=== PATIENT | female | born 1960 | race Hispanic/Latino ===

== ENCOUNTER 2022-11-24 20:16 | Emergency (ER) | payer MEDICARE, OTHER ==
[~2022-11-24] VITALS: Ht 152.4 cm; Wt 72.0 kg
[2022-11-24 21:04] LABS: BASO% 0.7 % (0-3); EOS% 0.3 % (0-8); HEMATOCRIT 26.1 % (37.0-47.0); HEMOGLOBIN 7.9 g/dl (12.0-16.0); IMMATURE GRANULOCYTES 0.2 % (0.0-5.0); LYMPH% 24.7 % (15-41); MEAN CELL VOLUME 82.3 fL CALC (80.0-100.0); MEAN CORPUSCULAR HGB 24.9 pG CALC (26.0-32.0); MEAN CORPUSCULAR HGB CONC 30.3 g/dL CAL (32.0-36.0); NEUT# 7.84 thou/uL (2.00-7.15); NEUT% 67.1 % (42-76); RED BLOOD COUNT 3.17 mill/uL (4.20-5.60); RED CELL DISTRI WIDTH 14.6 % (11.5-15.5)
[2022-11-24 21:18] LABS: ALBUMIN 4.3 g/dL (3.2-5.0); ALKALINE PHOSPHATASE 92 u/l (38-126); ANION GAP 24 (6-22 (CALC)); BILIRUBIN, TOTAL 0.5 mg/dL (0.02-1.3); CARBON DIOXIDE 15 mmol/l (22-30); CHLORIDE 102 mmol/l (95-108); CPK 79 u/l (30-135); GFR FOR AFR.AMER. 4 ML/MIN (>=60 (CALC)); GFR OTHER RACES 3 ML/MIN (>=60 (CALC)); LIPASE 182 u/l (23-300); MAGNESIUM 2.9 mg/dL (1.6-2.3); POTASSIUM 4.9 mmol/l (3.5-5.1); SGOT/AST 20 u/l (9-36); SODIUM 136 mmol/l (137-146); TOTAL PROTEIN 8.8 g/dL (6.3-8.2)
[2022-11-24 21:19] LABS: BUN 109 mg/dL (8-23); BUN/CREATININE RATIO 9 (12-20 (CALC)); CREATININE 12.4 mg/dL (0.5-1.0)
[2022-11-24] MEDS ORDERED: TRADJENTA5 MG PO (21:24)
[2022-11-24] MEDS ORDERED: [UNRECOGNIZED DRUG - OTHER] (21:29)
[2022-11-24] MEDS ORDERED: BUMETANIDE1 MG PO (22:34)
[2022-11-24] MEDS ORDERED: ATORVASTATIN CA40 MG PO (22:35)
[2022-11-24] MEDS ORDERED: [UNRECOGNIZED DRUG - MIXTURE] (22:36)
[2022-11-24] MEDS ORDERED: CALCITRIOL0.25 MC1 PO (22:37)
[2022-11-24] MEDS ORDERED: NIFEDIPINE (22:39)
[2022-11-25 01:58] LABS: URINE BILIRUBIN - DIPSTICK NEGATIVE (NEGATIVE); URINE BLOOD DIPSTICK SMALL (NEGATIVE); URINE COLOR YELLOW; URINE GLUCOSE - DIPSTICK 500 mg/dL (NEGATIVE); URINE KETONE NEGATIVE (NEGATIVE); URINE NITRITE - DIPSTICK NEGATIVE (Negative); URINE PROTEIN - DIPSTICK >=300 mg/dL (NEG-TRACE); URINE UROBILINOGEN - DIPSTICK 0.2 E.U./dL (0.2)
[2022-11-25 01:59] LABS: URINE LEUK ESTERASE NEGATIVE (NEGATIVE)
[2022-11-25 02:00] LABS: URINE BACTERIA FEW hpf; URINE EPITHELIAL CELLS MODERATE EPI/hpf (0-FEW); URINE MUCUS FEW hpf (NONE-FEW); URINE YEAST FEW hpf
[2022-11-25 04:43] VITALS: BP 135/70
--- NOTE | 2022-11-26 14:45 | NUR ---
PRELIMINARY BLOOD CULTURE SHOWS GRAM (+) COCCI IN 1/4 VIALS. RESULTS FAXED TO [facility] AT [phone].
== END 2022-11-25 04:15 ==
LOC: ED 20:16
PROVIDERS: Internal Medicine
PROC: 0T9B70Z Drainage of Bladder with Drainage Device, Via Natural or Artificial Opening (ICD-10-PCS; principal; 2022-11-24)
DX: E87.70 Fluid overload, unspecified (principal); I12.9 Hypertensive chronic kidney disease with stage 1 through stage 4 chronic kidney disease, or unspecified chronic kidney disease; E11.22 Type 2 diabetes mellitus with diabetic chronic kidney disease; N18.9 Chronic kidney disease, unspecified; E11.10 Type 2 diabetes mellitus with ketoacidosis without coma; R79.89 Other specified abnormal findings of blood chemistry; D64.9 Anemia, unspecified; E87.8 Other disorders of electrolyte and fluid balance, not elsewhere classified

== ENCOUNTER 2023-03-12 07:24 | Inpatient (IN) | payer MEDICARE, OTHER ==
[~2023-03-12] VITALS: Ht 152.4 cm; Wt 63.0 kg
[2023-03-12] VITALS (26 sets, daily range): BP systolic 121–209; BP diastolic 46–101
[~2023-03-12 07:24] MED LIST: ATORVASTATIN CA40 MG PO; BUMETANIDE1 MG PO; CALCITRIOL0.25 MC1 PO; NIFEDIPINE; TRADJENTA5 MG PO; [UNRECOGNIZED DRUG - MIXTURE]; [UNRECOGNIZED DRUG - OTHER]
[2023-03-12 08:21] LABS: BASO% 0.2 % (0-3); IMMATURE GRANULOCYTES 0.3 % (0.0-5.0); LYMPH% 2.4 % (15-41); MEAN CORPUSCULAR HGB CONC 30.6 g/dL CAL (32.0-36.0); MONO% 4.3 % (2-13); NEUT# 11.99 thou/uL (2.00-7.15); NEUT% 92.8 % (42-76); RED BLOOD COUNT 4.41 mill/uL (4.20-5.60); RED CELL DISTRI WIDTH 14.4 % (11.5-15.5)
[2023-03-12] MEDS ORDERED: ASPIRINCHW 81MG PO (08:21)
[2023-03-12] MEDS ORDERED: RENVELA800 MG PO (08:22)
[2023-03-12] MEDS ORDERED: PLAVIX75 MG PO (08:22)
[2023-03-12 08:23] LABS: HEMATOCRIT 38.9 % (37.0-47.0); HEMOGLOBIN 11.9 g/dl (12.0-16.0); MEAN CELL VOLUME 88.2 fL CALC (80.0-100.0)
[2023-03-12] MEDS ORDERED: COZAAR100 MG PO (08:23)
[2023-03-12] MEDS ORDERED: PROCARDIA XL60 MG PO (08:23)
[2023-03-12] MEDS ORDERED: CARVEDILOL6.25 MG PO (08:24)
[2023-03-12] MEDS ORDERED: HYDRALAZINE HYD25 MG PO (08:24)
[2023-03-12] MEDS ORDERED: LEVEMIR100 UNIT (08:25)
[2023-03-12] MEDS ORDERED: NOVOLOG MIX100 U/ML SC (08:25)
[2023-03-12] MEDS ORDERED: B COMPLE2 PO (08:25)
[2023-03-12 08:37] LABS: ALBUMIN 4.4 g/dL (3.2-5.0); TOTAL PROTEIN 8.7 g/dL (6.3-8.2)
[2023-03-12 08:40] LABS: BILIRUBIN, TOTAL 0.9 mg/dL (0.02-1.3); POTASSIUM 5.4 mmol/l (3.5-5.1)
[2023-03-12 08:41] LABS: CREATININE 7.9 mg/dL (0.5-1.0)
[2023-03-12 09:14] LABS: URINE BILIRUBIN - DIPSTICK NEGATIVE (NEGATIVE); URINE BLOOD DIPSTICK SMALL (NEGATIVE); URINE COLOR YELLOW; URINE GLUCOSE - DIPSTICK 500 mg/dL (NEGATIVE); URINE KETONE NEGATIVE (NEGATIVE); URINE LEUK ESTERASE TRACE (NEGATIVE); URINE PH 7.5 (4.5-8.0); URINE PROTEIN - DIPSTICK >=300 mg/dL (NEG-TRACE); URINE SPECIFIC GRAVITY 1.015; URINE UROBILINOGEN - DIPSTICK 0.2 E.U./dL (0.2)
[2023-03-12 09:15] LABS: URINE NITRITE - DIPSTICK NEGATIVE (Negative)
[2023-03-12 09:29] LABS: URINE BACTERIA MANY hpf; URINE RBC 0-2 RBC/hpf (0-5); URINE SQUAMOUS EPITHELIAL CELL MANY EPI/hpf (0-FEW)
[2023-03-12] MEDS ORDERED: LANTUS SOL100 UNIT/M (12:57)
[2023-03-13] VITALS (7 sets, daily range): BP systolic 128–151; BP diastolic 55–62
[2023-03-13 04:42] LABS: ALBUMIN 3.6 g/dL (3.2-5.0); BILIRUBIN, TOTAL 0.8 mg/dL (0.02-1.3); TOTAL PROTEIN 7.3 g/dL (6.3-8.2)
[2023-03-13 04:43] LABS: BASO% 0.4 % (0-3); EOS% 0.1 % (0-8); HEMATOCRIT 35.1 % (37.0-47.0); HEMOGLOBIN 10.8 g/dl (12.0-16.0); IMMATURE GRANULOCYTES 0.1 % (0.0-5.0); LYMPH% 8.6 % (15-41); MEAN CELL VOLUME 89.3 fL CALC (80.0-100.0); MEAN CORPUSCULAR HGB 27.5 pG CALC (26.0-32.0); MEAN CORPUSCULAR HGB CONC 30.8 g/dL CAL (32.0-36.0); MONO% 5.8 % (2-13); NEUT# 5.85 thou/uL (2.00-7.15); RED BLOOD COUNT 3.93 mill/uL (4.20-5.60); RED CELL DISTRI WIDTH 14.5 % (11.5-15.5)
[2023-03-13 04:45] LABS: CREATININE 4.8 mg/dL (0.5-1.0); MAGNESIUM 2.1 mg/dL (1.6-2.3); POTASSIUM 3.9 mmol/l (3.5-5.1)
[2023-03-14] VITALS (9 sets, daily range): BP systolic 123–164; BP diastolic 51–59
[2023-03-14 06:44] LABS: BASO% 0.3 % (0-3); EOS% 1.8 % (0-8); HEMATOCRIT 34.1 % (37.0-47.0); HEMOGLOBIN 10.6 g/dl (12.0-16.0); LYMPH% 16.8 % (15-41); MEAN CELL VOLUME 89.3 fL CALC (80.0-100.0); MEAN CORPUSCULAR HGB 27.7 pG CALC (26.0-32.0); MEAN CORPUSCULAR HGB CONC 31.1 g/dL CAL (32.0-36.0); MONO% 12.5 % (2-13); NEUT# 4.5 thou/uL (2.00-7.15); NEUT% 68.6 % (42-76); RED BLOOD COUNT 3.82 mill/uL (4.20-5.60); RED CELL DISTRI WIDTH 14.5 % (11.5-15.5)
[2023-03-14 08:20] LABS: ALBUMIN 3.4 g/dL (3.2-5.0); BILIRUBIN, TOTAL 0.6 mg/dL (0.02-1.3); TOTAL PROTEIN 6.8 g/dL (6.3-8.2)
[2023-03-14 08:23] LABS: POTASSIUM 4.8 mmol/l (3.5-5.1)
[2023-03-14 08:24] LABS: CREATININE 6.3 mg/dL (0.5-1.0)
[2023-03-15] VITALS (10 sets, daily range): BP systolic 134–213; BP diastolic 51–77
[2023-03-15 05:18] LABS: HEMATOCRIT 33.9 % (37.0-47.0); HEMOGLOBIN 10.4 g/dl (12.0-16.0); MEAN CORPUSCULAR HGB 27.3 pG CALC (26.0-32.0); MEAN CORPUSCULAR HGB CONC 30.7 g/dL CAL (32.0-36.0); RED BLOOD COUNT 3.81 mill/uL (4.20-5.60); RED CELL DISTRI WIDTH 14.4 % (11.5-15.5)
[2023-03-15 06:13] LABS: ALBUMIN 3.5 g/dL (3.2-5.0); BILIRUBIN, TOTAL 0.5 mg/dL (0.02-1.3); TOTAL PROTEIN 7.1 g/dL (6.3-8.2)
[2023-03-15 06:20] LABS: CREATININE 3.9 mg/dL (0.5-1.0); POTASSIUM 3.8 mmol/l (3.5-5.1)
[2023-03-16] VITALS (8 sets, daily range): BP systolic 126–205; BP diastolic 48–74
[2023-03-16 06:03] LABS: BASO% 0.5 % (0-3); EOS% 1.8 % (0-8); HEMATOCRIT 32.4 % (37.0-47.0); HEMOGLOBIN 9.7 g/dl (12.0-16.0); IMMATURE GRANULOCYTES 0.3 % (0.0-5.0); LYMPH% 25.4 % (15-41); MEAN CELL VOLUME 88.8 fL CALC (80.0-100.0); MEAN CORPUSCULAR HGB 26.6 pG CALC (26.0-32.0); MEAN CORPUSCULAR HGB CONC 29.9 g/dL CAL (32.0-36.0); MONO% 10.7 % (2-13); NEUT# 3.74 thou/uL (2.00-7.15); NEUT% 61.3 % (42-76); RED BLOOD COUNT 3.65 mill/uL (4.20-5.60); RED CELL DISTRI WIDTH 14.1 % (11.5-15.5)
[2023-03-16 06:11] LABS: ALBUMIN 3.3 g/dL (3.2-5.0); BILIRUBIN, TOTAL 0.4 mg/dL (0.02-1.3); POTASSIUM 4.4 mmol/l (3.5-5.1); TOTAL PROTEIN 6.6 g/dL (6.3-8.2)
[2023-03-16 06:31] LABS: CREATININE 6.2 mg/dL (0.5-1.0)
[2023-03-17] VITALS (10 sets, daily range): BP systolic 145–203; BP diastolic 56–79
[2023-03-17 05:51] LABS: POTASSIUM 4.4 mmol/l (3.5-5.1)
[2023-03-17 06:11] LABS: CREATININE 7.4 mg/dL (0.5-1.0)
[2023-03-18] VITALS (10 sets, daily range): BP systolic 125–176; BP diastolic 47–69
[2023-03-18 05:22] LABS: BASO% 0.7 % (0-3); EOS% 1.2 % (0-8); HEMOGLOBIN 10.4 g/dl (12.0-16.0); IMMATURE GRANULOCYTES 0.5 % (0.0-5.0); LYMPH% 16.5 % (15-41); MEAN CELL VOLUME 88.1 fL CALC (80.0-100.0); MEAN CORPUSCULAR HGB 26.9 pG CALC (26.0-32.0); MEAN CORPUSCULAR HGB CONC 30.6 g/dL CAL (32.0-36.0); MONO% 8.9 % (2-13); NEUT# 6.07 thou/uL (2.00-7.15); NEUT% 72.2 % (42-76); RED BLOOD COUNT 3.86 mill/uL (4.20-5.60); RED CELL DISTRI WIDTH 13.8 % (11.5-15.5)
[2023-03-18 05:40] LABS: ALBUMIN 3.7 g/dL (3.2-5.0); POTASSIUM 4.6 mmol/l (3.5-5.1); TOTAL PROTEIN 7.6 g/dL (6.3-8.2)
[2023-03-18 05:53] LABS: BILIRUBIN, TOTAL 0.6 mg/dL (0.02-1.3); CREATININE 5.3 mg/dL (0.5-1.0)
[2023-03-19] VITALS (8 sets, daily range): BP systolic 116–209; BP diastolic 59–75
[2023-03-19 10:24] LABS: ALBUMIN 3.8 g/dL (3.2-5.0); BILIRUBIN, TOTAL 0.6 mg/dL (0.02-1.3); TOTAL PROTEIN 7.6 g/dL (6.3-8.2)
[2023-03-19 10:31] LABS: CREATININE 7.3 mg/dL (0.5-1.0)
== END 2023-03-19 18:11 | disposition home or self-care (01) | DRG 871 ==
LOC: ED 07:24 → MS2 11:39
PROVIDERS: Family Medicine; Internal Medicine; Nurse Practitioner Family; ADMIT Internal Medicine; ATTEND Internal Medicine
PROC: 05HN33Z Insertion of Infusion Device into Left Internal Jugular Vein, Percutaneous Approach (ICD-10-PCS; principal; 2023-03-12)
PROC: 5A1D70Z Performance of Urinary Filtration, Intermittent, Less than 6 Hours Per Day (ICD-10-PCS; 2023-03-12)
PROC: 5A1D70Z Performance of Urinary Filtration, Intermittent, Less than 6 Hours Per Day (ICD-10-PCS; 2023-03-14)
PROC: 02PY33Z Removal of Infusion Device from Great Vessel, Percutaneous Approach (ICD-10-PCS; 2023-03-14)
PROC: 5A1D70Z Performance of Urinary Filtration, Intermittent, Less than 6 Hours Per Day (ICD-10-PCS; 2023-03-17)
PROC: 5A1D70Z Performance of Urinary Filtration, Intermittent, Less than 6 Hours Per Day (ICD-10-PCS; 2023-03-19)
DX: A41.01 Sepsis due to Methicillin susceptible Staphylococcus aureus (principal); J18.9 Pneumonia, unspecified organism; J96.00 Acute respiratory failure, unspecified whether with hypoxia or hypercapnia; N18.6 End stage renal disease; I13.2 Hypertensive heart and chronic kidney disease with heart failure and with stage 5 chronic kidney disease, or end stage renal disease; N25.81 Secondary hyperparathyroidism of renal origin; E87.1 Hypo-osmolality and hyponatremia; L97.412 Non-pressure chronic ulcer of right heel and midfoot with fat layer exposed; N39.0 Urinary tract infection, site not specified; R65.20 Severe sepsis without septic shock; I50.9 Heart failure, unspecified; E11.22 Type 2 diabetes mellitus with diabetic chronic kidney disease; E11.621 Type 2 diabetes mellitus with foot ulcer; E11.51 Type 2 diabetes mellitus with diabetic peripheral angiopathy without gangrene; E11.40 Type 2 diabetes mellitus with diabetic neuropathy, unspecified; D63.1 Anemia in chronic kidney disease; I25.10 Atherosclerotic heart disease of native coronary artery without angina pectoris; E87.5 Hyperkalemia; B95.2 Enterococcus as the cause of diseases classified elsewhere; Z79.4 Long term (current) use of insulin; Z99.2 Dependence on renal dialysis; Z20.822 Contact with and (suspected) exposure to COVID-19; Z89.421 Acquired absence of other right toe(s)
CPT/HCPCS: J1644; Q3014; Q5106 EC; Q9967

== ENCOUNTER 2024-04-14 12:18 | Emergency (ER) | payer MEDICARE ==
[2024-04-14] VITALS (26 sets, daily range): BP systolic 156–230; BP diastolic 60–97
[~2024-04-14] VITALS: Ht 152.4 cm; Wt 63.0 kg
[~2024-04-14 12:18] MED LIST changes: +ASPIRINCHW 81MG PO; +B COMPLE2 PO; +CARVEDILOL6.25 MG PO; +COZAAR100 MG PO; +HYDRALAZINE HYD25 MG PO; +LANTUS SOL100 UNIT/M; +LEVEMIR100 UNIT; +NOVOLOG MIX100 U/ML SC; +PLAVIX75 MG PO; +PROCARDIA XL60 MG PO; +RENVELA800 MG PO
[2024-04-14 13:09] LABS: BASO% 0.8 % (0-3); EOS% 1.2 % (0-8); HEMATOCRIT 38.6 % (37.0-47.0); IMMATURE GRANULOCYTES 0.2 % (0.0-5.0); MEAN CELL VOLUME 92.6 fL CALC (80.0-100.0); MEAN CORPUSCULAR HGB 28.8 pG CALC (26.0-32.0); MEAN CORPUSCULAR HGB CONC 31.1 g/dL CAL (32.0-36.0); MONO% 9.3 % (2-13); NEUT# 4.19 thou/uL (2.00-7.15); NEUT% 84.5 % (42-76); RED BLOOD COUNT 4.17 mill/uL (4.20-5.60)
[2024-04-14 13:25] LABS: ALBUMIN 4.2 g/dL (3.2-5.0); ALKALINE PHOSPHATASE 101 u/l (38-126); ANION GAP 9 (6-22 (CALC)); BILIRUBIN, TOTAL 0.8 mg/dL (0.02-1.3); CARBON DIOXIDE 32 mmol/l (22-30); CHLORIDE 99 mmol/l (95-108); ESTIMATED GFR 14 ML/MIN (>=90 (CALC)); SGOT/AST 24 u/l (9-36); SODIUM 135 mmol/l (137-146); TOTAL PROTEIN 8.9 g/dL (6.3-8.2)
[2024-04-14 13:26] LABS: BUN 17 mg/dL (8-23); BUN/CREATININE RATIO 5 (12-20 (CALC)); CREATININE 3.4 mg/dL (0.5-1.0)
[2024-04-14] MEDS ORDERED: LABETALOL HCL 20 MG/ 4 ML CARTRG IV ONE ×2 (13:55→14:20)
[2024-04-14] MEDS ORDERED: SODIUM CHLORIDE 0.9% 500 ML IV ONE (14:35)
[2024-04-14] MEDS ORDERED: NITROGLYCERIN IN D5W 250 ML IV ONE (14:35)
== END 2024-04-14 16:08 | disposition short-term general hospital (02) ==
LOC: ED 12:18
PROVIDERS: Nurse Practitioner Acute Care
DX: I13.2 Hypertensive heart and chronic kidney disease with heart failure and with stage 5 chronic kidney disease, or end stage renal disease (principal); I16.0 Hypertensive urgency; I50.9 Heart failure, unspecified; R09.02 Hypoxemia; E11.22 Type 2 diabetes mellitus with diabetic chronic kidney disease; N18.6 End stage renal disease; E11.621 Type 2 diabetes mellitus with foot ulcer; L97.519 Non-pressure chronic ulcer of other part of right foot with unspecified severity; Z99.2 Dependence on renal dialysis; Z79.4 Long term (current) use of insulin; I51.0 Cardiac septal defect, acquired; Z95.5 Presence of coronary angioplasty implant and graft; Z90.5 Acquired absence of kidney; Z85.528 Personal history of other malignant neoplasm of kidney

== ENCOUNTER 2024-06-26 23:09 | Emergency (ER) | payer MEDICARE ==
[~2024-06-26] VITALS: Ht 144.8 cm; Wt 63.0 kg
[2024-06-26 23:34] VITALS: BP 164/69
[2024-06-26 23:55] LABS: BASO% 0.4 % (0-3); EOS% 0.1 % (0-8); HEMATOCRIT 42.8 % (37.0-47.0); IMMATURE GRANULOCYTES 0.8 % (0.0-5.0); LYMPH% 3.5 % (15-41); MEAN CELL VOLUME 91.1 fL CALC (80.0-100.0); MEAN CORPUSCULAR HGB 27.7 pG CALC (26.0-32.0); MEAN CORPUSCULAR HGB CONC 30.4 g/dL CAL (32.0-36.0); MONO% 6.5 % (2-13); NEUT# 13.3 thou/uL (2.00-7.15); NEUT% 88.7 % (42-76); RED BLOOD COUNT 4.7 mill/uL (4.20-5.60)
[2024-06-27] LABS: ALBUMIN 4.4 g/dL (3.2-5.0); TOTAL PROTEIN 9.2 g/dL (6.3-8.2)
[2024-06-27 00:01] VITALS: BP 166/54
[2024-06-27] MEDS ORDERED: ACETAMINOPHEN 500 MG TAB PO ONE (00:05)
[2024-06-27 00:12] LABS: BILIRUBIN, TOTAL 1.2 mg/dL (0.02-1.3)
[2024-06-27] MEDS ORDERED: Levofloxacin 750 mg Premix 150 ML IV ONE (00:15)
[2024-06-27] MEDS ORDERED: INSULIN REGULAR (HUMAN) 100 UNIT/ML INJ SC ONE (00:20)
[2024-06-27 00:31] VITALS: BP 172/63
[2024-06-27 01:00] VITALS: BP 155/61
[2024-06-27 01:30] VITALS: BP 144/63
[2024-06-27 02:01] VITALS: BP 133/74
[2024-06-27 02:23] VITALS: BP 133/74
--- NOTE | 2024-06-29 09:39 | NUR ---
Preliminary blood culture results growing gram positive cocci in 4/4 bottles called and faxed to nurse Antonio at [facility].
== END 2024-06-27 02:20 | disposition short-term general hospital (02) ==
LOC: ED 23:09
PROVIDERS: Family Medicine
DX: J18.9 Pneumonia, unspecified organism (principal); R09.02 Hypoxemia; I12.9 Hypertensive chronic kidney disease with stage 1 through stage 4 chronic kidney disease, or unspecified chronic kidney disease; E11.22 Type 2 diabetes mellitus with diabetic chronic kidney disease; N18.4 Chronic kidney disease, stage 4 (severe); I25.10 Atherosclerotic heart disease of native coronary artery without angina pectoris; Z90.5 Acquired absence of kidney; Z95.5 Presence of coronary angioplasty implant and graft; Z79.4 Long term (current) use of insulin; Z20.822 Contact with and (suspected) exposure to COVID-19

== ENCOUNTER 2024-07-07 11:42 | Emergency (ER) | payer MEDICARE ==
[2024-07-07] VITALS (13 sets, daily range): BP systolic 100–120; BP diastolic 41–66
[~2024-07-07] VITALS: Ht 144.8 cm; Wt 63.5 kg
[2024-07-07 12:12] LABS: BASO% 0.5 % (0-3); EOS% 0.8 % (0-8); IMMATURE GRANULOCYTES 0.3 % (0.0-5.0); LYMPH% 11.1 % (15-41); MEAN CELL VOLUME 89.7 fL CALC (80.0-100.0); MEAN CORPUSCULAR HGB 27.4 pG CALC (26.0-32.0); MEAN CORPUSCULAR HGB CONC 30.6 g/dL CAL (32.0-36.0); MONO% 7.4 % (2-13); NEUT# 7.02 thou/uL (2.00-7.15); NEUT% 79.9 % (42-76); RED BLOOD COUNT 3.79 mill/uL (4.20-5.60); RED CELL DISTRI WIDTH 16.6 % (11.5-15.5)
[2024-07-07 12:15] LABS: HEMOGLOBIN 10.4 g/dl (12.0-16.0)
[2024-07-07 13:12] LABS: CHOLESTEROL HDL RATIO 2.9 (<4.4 (CALC))
[2024-07-07 13:15] LABS: ALBUMIN 3.7 g/dL (3.2-5.0); POTASSIUM 4.2 mmol/l (3.5-5.1); TOTAL PROTEIN 7.7 g/dL (6.3-8.2)
[2024-07-07 13:21] LABS: BILIRUBIN, TOTAL 0.7 mg/dL (0.02-1.3); CREATININE 2.9 mg/dL (0.5-1.0)
[2024-07-07 13:28] LABS: INTERNATIONAL NORMALIZED RATIO 1.1 RATIO (0.7-1.3)
[2024-07-07 13:32] LABS: PROTHROMBIN TIME 10.6 SECONDS (9.0-12.5)
== END 2024-07-07 15:52 | disposition home or self-care (01) ==
LOC: ED 11:42
PROVIDERS: Family Medicine
DX: G45.9 Transient cerebral ischemic attack, unspecified (principal); I12.0 Hypertensive chronic kidney disease with stage 5 chronic kidney disease or end stage renal disease; E11.22 Type 2 diabetes mellitus with diabetic chronic kidney disease; N18.6 End stage renal disease; Z99.2 Dependence on renal dialysis; Z79.4 Long term (current) use of insulin; Z90.5 Acquired absence of kidney; Z95.5 Presence of coronary angioplasty implant and graft

== ENCOUNTER 2024-07-12 06:43 | Emergency (ER) | payer MEDICARE ==
[2024-07-12] VITALS (17 sets, daily range): BP systolic 146–188; BP diastolic 60–89
[~2024-07-12] VITALS: Ht 144.8 cm; Wt 64.0 kg
[2024-07-12] MEDS ORDERED: ONDANSETRON HCl 4 MG/2 ML SDV IV ONE (07:20)
[2024-07-12 07:41] LABS: BASO% 0.4 % (0-3); EOS% 0.3 % (0-8); HEMOGLOBIN 8.5 g/dl (12.0-16.0); IMMATURE GRANULOCYTES 0.8 % (0.0-5.0); LYMPH% 6.3 % (15-41); MEAN CELL VOLUME 92.3 fL CALC (80.0-100.0); MEAN CORPUSCULAR HGB 28.6 pG CALC (26.0-32.0); MONO% 8.2 % (2-13); NEUT# 12.21 thou/uL (2.00-7.15); RED BLOOD COUNT 2.97 mill/uL (4.20-5.60); RED CELL DISTRI WIDTH 17.9 % (11.5-15.5)
[2024-07-12 07:42] LABS: HEMATOCRIT 27.4 % (37.0-47.0)
[2024-07-12] MEDS ORDERED: VANCOMYCIN IV (07:44)
[2024-07-12 07:51] LABS: TOTAL PROTEIN 7.7 g/dL (6.3-8.2)
[2024-07-12 08:06] LABS: BILIRUBIN, TOTAL 1.7 mg/dL (0.02-1.3)
[2024-07-12 08:08] LABS: CREATININE 7.7 mg/dL (0.5-1.0)
[2024-07-12] MEDS ORDERED: ENOXAPARIN SODIUM 100 MG/ML SYR SC ONE (08:10)
[2024-07-12] MEDS ORDERED: ALBUTEROL SULFATE 2.5 MG VIAL NEB ONE (08:10)
[2024-07-12] MEDS ORDERED: DEXTROSE 10% 500 ML BAG IV ONE (08:10)
[2024-07-12] MEDS ORDERED: ASPIRIN 81 MG/TAB PO ONE (08:10)
[2024-07-12] MEDS ORDERED: PIPERACILLIN Sodium-Tazobactam 3.375 GM in SODIUM CHLORIDE 0.9% 100 ML IV ONE (08:10)
[2024-07-12] MEDS ORDERED: CALCIUM GLUCONATE 1 GM in SODIUM CHLORIDE 0.9% 50 ML IV ONE (08:10)
[2024-07-12] MEDS ORDERED: INSULIN REGULAR (HUMAN) 100 UNIT/ML INJ IV ONE (08:10)
[2024-07-12] MEDS ORDERED: CALCIUM GLUCONATE 2 GM in SODIUM CHLORIDE 0.9% 100 ML IV ONE (08:10)
[2024-07-12 08:13] LABS: POTASSIUM 7.1 mmol/l (3.5-5.1)
[2024-07-12] MEDS ORDERED: VANCOMYCIN HCL 500 MG in SODIUM CHLORIDE 0.9% 250 ML IV ONE (08:20)
[2024-07-12] MEDS ORDERED: SODIUM CHLORIDE 0.9% 50 ML IV ONE (08:24)
[2024-07-12] MEDS ORDERED: SODIUM CHLORIDE 0.9% 100 ML IV ONE (08:37)
[2024-07-12] MEDS ORDERED: CALCIUM GLUCONATE 1 GM/10 ML VIAL IV ONE (09:50)
[2024-07-12] MEDS ORDERED: ALBUTEROL SULFATE 2.5 MG VIAL IN ONE (10:40)
[2024-07-12] MEDS ORDERED: SODIUM ZIRCONIUM CYCLOSILICATE 10 GM PAK PO ONE (10:40)
== END 2024-07-12 11:51 | disposition short-term general hospital (02) ==
LOC: ED 06:43
PROVIDERS: Family Medicine
DX: K85.90 Acute pancreatitis without necrosis or infection, unspecified (principal); I21.4 Non-ST elevation (NSTEMI) myocardial infarction; J18.9 Pneumonia, unspecified organism; R74.01 Elevation of levels of liver transaminase levels; K52.9 Noninfective gastroenteritis and colitis, unspecified; I33.0 Acute and subacute infective endocarditis; E87.5 Hyperkalemia; I12.0 Hypertensive chronic kidney disease with stage 5 chronic kidney disease or end stage renal disease; E11.22 Type 2 diabetes mellitus with diabetic chronic kidney disease; N18.6 End stage renal disease; Z99.2 Dependence on renal dialysis; Z79.4 Long term (current) use of insulin; Z95.5 Presence of coronary angioplasty implant and graft; Z90.5 Acquired absence of kidney; Z20.822 Contact with and (suspected) exposure to COVID-19
CPT/HCPCS: J1650; Q9967

== ENCOUNTER 2024-10-03 14:23 | Emergency (ER) | payer MEDICARE ==
[~2024-10-03] VITALS: Ht 144.8 cm; Wt 65.0 kg
[~2024-10-03 14:23] MED LIST changes: +AMOX/K CLAV875 M1 PO; +LASIX 40 MG TAB40 MG PO; +VANCOMYCIN IV; +ZITHROMAX250 MG PO
[2024-10-03] MEDS ORDERED: SODIUM CHLORIDE 0.9% 1,000 ML IV ONE ×2 (15:00→17:25)
[2024-10-03 15:37] LABS: BASO% 0.2 % (0-3); EOS% 0.4 % (0-8); HEMATOCRIT 30.6 % (37.0-47.0); IMMATURE GRANULOCYTES 0.8 % (0.0-5.0); LYMPH% 4.1 % (15-41); MEAN CORPUSCULAR HGB 29.3 pG CALC (26.0-32.0); MEAN CORPUSCULAR HGB CONC 32.7 g/dL CAL (32.0-36.0); MONO% 2.6 % (2-13); NEUT# 18.01 thou/uL (2.00-7.15); NEUT% 91.9 % (42-76); RED BLOOD COUNT 3.41 mill/uL (4.20-5.60); RED CELL DISTRI WIDTH 21.1 % (11.5-15.5)
[2024-10-03 15:39] LABS: MEAN CELL VOLUME 89.7 fL CALC (80.0-100.0)
[2024-10-03 15:47] LABS: ALBUMIN 3.3 g/dL (3.2-5.0); POTASSIUM 4.9 mmol/l (3.5-5.1); TOTAL PROTEIN 7.5 g/dL (6.3-8.2)
[2024-10-03 15:48] LABS: BILIRUBIN, TOTAL 9.3 mg/dL (0.02-1.3); CREATININE 5.7 mg/dL (0.5-1.0)
[2024-10-03] MEDS ORDERED: CEFEPIME HYDROCHLORIDE 2 GM in SODIUM CHLORIDE 0.9% 100 ML IV ONE ×2 (15:50→16:15)
[2024-10-03] MEDS ORDERED: VANCOMYCIN HCL 1 GM in SODIUM CHLORIDE 0.9% 500 ML IV ONE ×2 (15:55→16:20)
[2024-10-03 16:15] LABS: URINE BLOOD DIPSTICK Negative (NEGATIVE); URINE COLOR Amber; URINE GLUCOSE - DIPSTICK 250 mg/dL (NEGATIVE); URINE KETONE Trace mg/dL (NEGATIVE); URINE LEUK ESTERASE Negative (NEGATIVE); URINE NITRITE - DIPSTICK Negative (Negative); URINE PROTEIN - DIPSTICK >=300 mg/dL (NEG-TRACE)
[2024-10-03 16:20] LABS: URINE TRANSITIONAL EPI. CELLS MODERATE hpf
[2024-10-03 16:21] LABS: URINE RBC 0-2 RBC/hpf (0-5)
[2024-10-03 16:22] LABS: URINE AMORPH SEDIMENT FEW hpf (NONE-FEW); URINE BACTERIA FEW hpf
[2024-10-03] MEDS ORDERED: NOREPINEPHRINE BITARTRATE 4 MG in DEXTROSE 5% 250 ML IV ONE (17:25)
[2024-10-03] MEDS ORDERED: SODIUM CHLORIDE 0.9% 250 ML IV PRN (17:25)
[2024-10-03] MEDS ORDERED: MIDAZOLAM HCL 2 MG/2 ML VIAL IV ONE (18:00)
[2024-10-03] MEDS ORDERED: DiphenhydrAMINE HCL 50 MG/ML SDV IV ONE (18:00)
[2024-10-03 18:20] VITALS: BP 102/54
--- NOTE | 2024-10-05 14:56 | NUR ---
Preliminary blood culture results: 3 out of 4 bottles with gram + cocci. Results given via phone to Jenny SHELDON at [facility] ICU. Also faxed to unit at [phone].
--- NOTE | 2024-10-06 11:23 | NUR ---
FINAL RESULTS OF BLOOD CULTURE FAXED TO [facility] @ [phone] ON 10/06/23 @ [id number].
== END 2024-10-03 18:20 | disposition short-term general hospital (02) ==
LOC: ED 14:23
PROVIDERS: Family Medicine
PROC: 02HV33Z Insertion of Infusion Device into Superior Vena Cava, Percutaneous Approach (ICD-10-PCS; principal; 2024-10-03)
PROC: 3E043XZ Introduction of Vasopressor into Central Vein, Percutaneous Approach (ICD-10-PCS; 2024-10-03)
DX: I61.9 Nontraumatic intracerebral hemorrhage, unspecified (principal); R47.9 Unspecified speech disturbances; R40.4 Transient alteration of awareness; R29.700 NIHSS score 0; J18.9 Pneumonia, unspecified organism; E80.6 Other disorders of bilirubin metabolism; K80.00 Calculus of gallbladder with acute cholecystitis without obstruction; I12.0 Hypertensive chronic kidney disease with stage 5 chronic kidney disease or end stage renal disease; E11.22 Type 2 diabetes mellitus with diabetic chronic kidney disease; N18.6 End stage renal disease; Z99.2 Dependence on renal dialysis; N25.81 Secondary hyperparathyroidism of renal origin; I25.10 Atherosclerotic heart disease of native coronary artery without angina pectoris; Z95.5 Presence of coronary angioplasty implant and graft; Z90.5 Acquired absence of kidney; Z79.4 Long term (current) use of insulin; Z79.02 Long term (current) use of antithrombotics/antiplatelets; Z20.822 Contact with and (suspected) exposure to COVID-19
CPT/HCPCS: J0692; J3370